=== PATIENT | female | born 1990 | race African-American/Black ===

== ENCOUNTER 2019-01-07 12:29 | Inpatient (IN) ==
[2019-01-07 13:19] LABS: Basophils # (auto) 0.04 K/uL (0-0.2); Basophils % (auto) 0.5 %; Eosinophils # (auto) 0.02 K/uL (0-0.5); Eosinophils % (auto) 0.2 %; Hematocrit (blood only) 38.9 % (37-47); Hemoglobin 13.5 g/dL (12.0-16.0); Immature Granulocytes # (auto) 0.02 K/uL (0.00-0.02); Immature Granulocytes % (auto) 0.2 %; Lymphocytes # (auto) 1.08 K/uL (1.2-3.4); Lymphocytes % (auto) 13.2 %; Mean Corpuscular Hgb Conc 34.7 g/dL (32-36); Mean Corpuscular Volume 84.7 fL (80-100); Monocytes # (auto) 0.47 K/uL (0.11-0.59); Monocytes % (auto) 5.8 %; Neutrophils # (auto) 6.53 K/uL (1.4-6.5); Neutrophils % (auto) 80.1 %; Platelet Count 329 K/uL (130-400); RDW Coefficient of Variation 12.4 % (11.5-14.5); RDW Standard Deviation 38.1 fL (36.4-46.3); Red Blood Count 4.59 M/uL (4.2-5.4); White Blood Count 8.16 K/uL (4.8-10.8)
[2019-01-07 13:20] LABS: Appearance Urine Clear (Clear); Bilirubin Urine Negative (Negative); Blood Urine Negative (Negative); Color Urine Yellow; Glucose Urine UA Negative (Negative); Ketones Urine Trace (Negative); Leukocyte Esterase Urine Negative (Negative); Nitrite Urine Negative (Negative); Protein Urine Negative (Negative); Specific Gravity Urine 1.022 (1.000-1.030); Urobilinogen Urine Negative (Negative); pH Urine 6.5 (4.5-7.5)
[2019-01-07 13:32] LABS: Albumin Level 3.9 gm/dl (3.4-5.0); BUN Creatinine Ratio 13.7 (10-20); Calcium 8.8 mg/dl (8.5-10.1); Est GFR (African American) 85.3; Est GFR (Non-African American) 73.6; Potassium 3.5 mmol/L (3.5-5.1)
[2019-01-07 13:35] LABS: Acetaminophen < 2 ug/ml (10-30); Salicylate < 1.7 mg/dl (2.8-20)
[2019-01-07 13:43] LABS: Albumin Globulin Ratio 1.3 (0.9-2); Bilirubin,Total 0.5 mg/dl (0.2-1); Globulin 3.1 gm/dl (2.5-4.0)
[2019-01-07 14:04] LABS: Pregnancy Test, Serum Negative (Negative)
[2019-01-07 14:10] LABS: Amphetamines+Metham, Urine Neg (Neg); Barbiturates, Urine Neg (Neg); Benzodiazepine, Urine Neg (Neg); Cocaine, Urine Neg (Neg); MDMA (Ecstacy), Urine Pos (Neg); Methadone, Urine Neg (Neg); Opiate, Urine Neg (Neg); Phencyclidine, Urine Neg (Neg)
[2019-01-07] MEDS ORDERED: diazePAM 2 MG TABLET PO ONE (15:12)
--- NOTE | 2019-01-07 15:12 | Emergency Department Note ---
Entered by Tanvi Alcocer acting as a scribe for History of Present Illness General Chief complaint: Mental Health Evaluation Stated complaint: MENTAL HEALTH Time Seen by Provider: 01/07/19 13:27 History of Present Illness Provider complaint: suicidal ideation Onset (ago): week(s) 3 Severity: similar to prior episodes (10 years ago) Pain Consistency: + intermittent Quality: + other (suicial ideation) Associated symptoms: + denies other symptoms (having a plan, prior suicide attempts, cutting or burning herself, ) and + other (scratches on body from her own fingernails, anxiety, doing very well with her therapist, psychiatrist and medication changes) The patient is a 28 year old female who presents to the ED with intermittent suicidal ideation that started 3 weeks ago. The patient states that she has been doing very well with her therapist, psychiatrist and medication changes, but recent relationship problems has triggered her anxiety and suicidal thoughts. The patient notes that she scratches herself with her fingernails when she gets anxious, which she has been doing more of recently. The patient denies having a plan because "pain has always been a deterrent" for her. The patient notes that this episode is similar to prior episodes of suicidal ideation that occurred 10 years ago. The patient denies prior suicide attempts, cutting and burning herself. Of note, patient initially admitted to nursing staff on their initial evaluation that she attempted overdose on Tylenol and sleeping pills last week, and that this week she placed a plastic bag over her head with the hopes that she would pass out and suffocate. Home Medications Home Medications Medication Instructions Recorded Confirmed Type bupropion HCl 200 mg PO DAILY 01/06/19 01/07/19 History dextroamphetamine-amphetamine 15 mg PO DAILY 01/06/19 01/07/19 History lorazepam [Ativan] 1 mg PO DAILY PRN 01/06/19 01/07/19 History Allergies Allergy/AdvReac Type Severity Reaction Status Date / Time sulfamethoxazole Allergy Intermediate Rash Verified 01/06/19 23:01 [From Bactrim] trimethoprim [From Bactrim] Allergy Intermediate Rash Verified 01/06/19 23:01 Past Med/Surg History Medical History Depression Suicidal ideations Anxiety Social History Preferred Language: Romanian Communication Ability: Effective Optical 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 and A total of 10 systems reviewed and were otherwise negative Physical Exam Vital Signs Vital Signs - 24 hr 01/07/19 12:33 01/07/19 15:16 Temperature 36.9 C Temperature Source Oral Sepsis Recent Fever Within 48 Hours No Sepsis New/Unexplained Change in Mental Status No Sepsis Action Taken by Nursing No Action Required Pulse Rate 102 H Pulse Rate [Finger] 83 Respiratory Rate 20 20 Blood Pressure 124/87 Blood Pressure [Left Arm] 122/56 L Blood Pressure Mean 99 Blood Pressure Mean [Left Arm] 78 Pulse Oximetry 96 98 Oxygen Delivery Method Room Air Room Air GENERAL: alert, well appearing, well nourished, no distress, non-toxic EYE EXAM: normal conjunctiva, PERRL and EOM's grossly intact OROPHARYNX: no exudate, no erythema, lips, buccal mucosa, and tongue normal and mucous membranes are moist NECK: supple, no nuchal rigidity, no adenopathy, non-tender LUNGS: Clear to auscultation. Normal chest wall mechanics, no w/r/r HEART: no murmurs, S1 normal and S2 normal ABDOMEN: abdomen soft, non-tender, normo-active bowel sounds, no masses, no rebound or guarding. BACK: Back is symmetrical on inspection and there is no deformity, no midline tenderness, no CVA tenderness. SKIN: no rashes and no bruising UPPER EXTREMITIES: upper extremities are grossly normal. FROM, nml pulses b/l. LOWER EXTREMITIES: No pitting edema. FROM, nml pulses b/l. NEURO EXAM: Normal sensorium, cranial nerves II-XII grossly intact, normal speech, no gross weakness of arms, no gross weakness of legs. PSYCH: Positive for SI. Admits to history of anxiety and depression. Slightly flat affect. Course 1421: Past medical records reviewed. The patient was evaluated in room A5. A complete history and physical exam was performed. 1500: Clarisa, psych adult protective caseworker, spoke with pt's psychiatrist who is in agreement with inpatient treatment at this time. 1630: I signed the 201. The patient will be transferred to [address] [place] [address]. Administered Medications Lorazepam (Ativan) 1 mg PO BID PRN PRN Reason: Anxiety/Insomnia Stop: 02/06/19 16:16 Last Admin: 01/07/19 17:44 Dose: 1 mg Documented by: [id number] Discontinued Medications Diazepam (Valium) 2 mg PO NOW ONE Stop: 01/07/19 15:13 Last Admin: 01/07/19 15:19 Dose: 2 mg Documented by: [id number] Medical Decision Making Differential Diagnosis Differential diagnosis: Etiologies such as psychiatric disorder, infection, hypoglycemia, electrolyte abnormalities, cardiac sources, intracerebral event, toxicological process, neurologic disorder, as well as others were entertained. Medical Records Attestation: I reviewed the patient's medical records. Home Medications Current Medication List: was personally reviewed by me Laboratory Data Attestation: I reviewed the patient's lab results. Result diagrams: 01/07/19 12:54 01/07/19 12:54 Lab Results 01/07/19 01/07/19 01/07/19 Range/Units 12:48 12:48 12:54 WBC 8.16 (4.8-10.8) K/uL RBC 4.59 (4.2-5.4) M/uL Hgb 13.5 (12.0-16.0) g/dL Hct 38.9 (37-47) % MCV 84.7 (80-100) fL MCH 29.4 (25-34) pg MCHC 34.7 (32-36) g/dL RDW Std Deviation 38.1 (36.4-46.3) fL RDW Coeff of Bello 12.4 (11.5-14.5) % Plt Count 329 (130-400) K/uL MPV 10.0 (7.4-10.4) fL Immature Gran % (Auto) 0.2 % Neut % (Auto) 80.1 % Lymph % (Auto) 13.2 % M[place] % (Auto) 5.8 % Eos % (Auto) 0.2 % Baso % (Auto) 0.5 % Immature Gran # (Auto) 0.02 (0.00-0.02) K/uL Neut # (Auto) 6.53 H (1.4-6.5) K/uL Lymph # (Auto) 1.08 L (1.2-3.4) K/uL Mingo # (Auto) 0.47 (0.11-0.59) K/uL Eos # (Auto) 0.02 (0-0.5) K/uL Baso # (Auto) 0.04 (0-0.2) K/uL Sodium (136-145) mmol/L Potassium (3.5-5.1) mmol/L Chloride (98-107) mmol/L Carbon Dioxide (21-32) mmol/L Anion Gap (3-11) BUN (7-18) mg/dl Creatinine (0.6-1.2) mg/dl Est Cr Clr Drug Dosing ml/min Est GFR ( Amer) Est GFR (Non-Af Amer) BUN/Creatinine Ratio (10-20) Glucose (70-99) mg/dl Calcium (8.5-10.1) mg/dl Total Bilirubin (0.2-1) mg/dl AST (15-37) U/L ALT (12-78) U/L Alkaline Phosphatase (45-117) U/L Total Protein (6.4-8.2) gm/dl Albumin (3.4-5.0) gm/dl Globulin (2.5-4.0) gm/dl Albumin/Globulin Ratio (0.9-2) TSH (0.300-4.500) uIu/ml HCG, Qual (Negative) Urine Color Yellow Urine Appearance Clear (Clear) Urine pH 6.5 (4.5-7.5) Ur Specific [place] 1.022 (1.000-1.030) Urine Protein Negative (Negative) Urine Glucose (UA) Negative (Negative) Urine Ketones Trace H (Negative) Urine Blood Negative (Negative) Urine Nitrite Negative (Negative) Urine Bilirubin Negative (Negative) Urine Urobilinogen Negative (Negative) Ur Leukocyte Esterase Negative (Negative) Salicylates (2.8-20) mg/dl Urine Opiates Screen Neg (Neg) Ur Methadone, Qual Neg (Neg) Acetaminophen (10-30) ug/ml Urine Barbiturates Neg (Neg) Ur Phencyclidine (PCP) Neg (Neg) U Amphetamin/Meth Scrn Neg (Neg) MDMA (Ecstasy) Screen Pos H (Neg) U Benzodiazepines Scrn Neg (Neg) Ur Cocaine Metabolite Neg (Neg) U Marijuana (THC) Screen Pos H (Neg) Ethyl Alcohol mg/dL (0-3) mg/dl 01/07/19 01/07/19 01/07/19 Range/Units 12:54 12:54 12:54 WBC (4.8-10.8) K/uL RBC (4.2-5.4) M/uL Hgb (12.0-16.0) g/dL Hct (37-47) % MCV (80-100) fL MCH (25-34) pg MCHC (32-36) g/dL RDW Std Deviation (36.4-46.3) fL RDW Coeff of Bello (11.5-14.5) % Plt Count (130-400) K/uL MPV (7.4-10.4) fL Immature Gran % (Auto) % Neut % (Auto) % Lymph % (Auto) % M[place] % (Auto) % Eos % (Auto) % Baso % (Auto) % Immature Gran # (Auto) (0.00-0.02) K/uL Neut # (Auto) (1.4-6.5) K/uL Lymph # (Auto) (1.2-3.4) K/uL Mingo # (Auto) (0.11-0.59) K/uL Eos # (Auto) (0-0.5) K/uL Baso # (Auto) (0-0.2) K/uL Sodium 140 (136-145) mmol/L Potassium 3.5 (3.5-5.1) mmol/L Chloride 108 H (98-107) mmol/L Carbon Dioxide 24 (21-32) mmol/L Anion Gap 8.0 (3-11) BUN 14 (7-18) mg/dl Creatinine 1.04 (0.6-1.2) mg/dl Est Cr Clr Drug Dosing 79.0 ml/min Est GFR ( Amer) 85.3 Est GFR (Non-Af Amer) 73.6 BUN/Creatinine Ratio 13.7 (10-20) Glucose 81 (70-99) mg/dl Calcium 8.8 (8.5-10.1) mg/dl Total Bilirubin 0.5 (0.2-1) mg/dl AST 11 L (15-37) U/L ALT 16 (12-78) U/L Alkaline Phosphatase 41 L (45-117) U/L Total Protein 7.0 (6.4-8.2) gm/dl Albumin 3.9 (3.4-5.0) gm/dl Globulin 3.1 (2.5-4.0) gm/dl Albumin/Globulin Ratio 1.3 (0.9-2) TSH 0.720 (0.300-4.500) uIu/ml HCG, Qual (Negative) Urine Color Urine Appearance (Clear) Urine pH (4.5-7.5) Ur Specific [place] (1.000-1.030) Urine Protein (Negative) Urine Glucose (UA) (Negative) Urine Ketones (Negative) Urine Blood (Negative) Urine Nitrite (Negative) Urine Bilirubin (Negative) Urine Urobilinogen (Negative) Ur Leukocyte Esterase (Negative) Salicylates < 1.7 L (2.8-20) mg/dl Urine Opiates Screen (Neg) Ur Methadone, Qual (Neg) Acetaminophen < 2 L (10-30) ug/ml Urine Barbiturates (Neg) Ur Phencyclidine (PCP) (Neg) U Amphetamin/Meth Scrn (Neg) MDMA (Ecstasy) Screen (Neg) U Benzodiazepines Scrn (Neg) Ur Cocaine Metabolite (Neg) U Marijuana (THC) Screen (Neg) Ethyl Alcohol mg/dL < 3.0 (0-3) mg/dl 01/07/19 Range/Units 13:00 WBC (4.8-10.8) K/uL RBC (4.2-5.4) M/uL Hgb (12.0-16.0) g/dL Hct (37-47) % MCV (80-100) fL MCH (25-34) pg MCHC (32-36) g/dL RDW Std Deviation (36.4-46.3) fL RDW Coeff of Bello (11.5-14.5) % Plt Count (130-400) K/uL MPV (7.4-10.4) fL Immature Gran % (Auto) % Neut % (Auto) % Lymph % (Auto) % [place] % (Auto) % Eos % (Auto) % Baso % (Auto) % Immature Gran # (Auto) (0.00-0.02) K/uL Neut # (Auto) (1.4-6.5) K/uL Lymph # (Auto) (1.2-3.4) K/uL M[place] # (Auto) (0.11-0.59) K/uL Eos # (Auto) (0-0.5) K/uL Baso # (Auto) (0-0.2) K/uL Sodium (136-145) mmol/L Potassium (3.5-5.1) mmol/L Chloride (98-107) mmol/L Carbon Dioxide (21-32) mmol/L Anion Gap (3-11) BUN (7-18) mg/dl Creatinine (0.6-1.2) mg/dl Est Cr Clr Drug Dosing ml/min Est GFR ( Amer) Est GFR (Non-Af Amer) BUN/Creatinine Ratio (10-20) Glucose (70-99) mg/dl Calcium (8.5-10.1) mg/dl Total Bilirubin (0.2-1) mg/dl AST (15-37) U/L ALT (12-78) U/L Alkaline Phosphatase (45-117) U/L Total Protein (6.4-8.2) gm/dl Albumin (3.4-5.0) gm/dl Globulin (2.5-4.0) gm/dl Albumin/Globulin Ratio (0.9-2) TSH (0.300-4.500) uIu/ml HCG, Qual Negative (Negative) Urine Color Urine Appearance (Clear) Urine pH (4.5-7.5) Ur Specific [place] (1.000-1.030) Urine Protein (Negative) Urine Glucose (UA) (Negative) Urine Ketones (Negative) Urine Blood (Negative) Urine Nitrite (Negative) Urine Bilirubin (Negative) Urine Urobilinogen (Negative) Ur Leukocyte Esterase (Negative) Salicylates (2.8-20) mg/dl Urine Opiates Screen (Neg) Ur Methadone, Qual (Neg) Acetaminophen (10-30) ug/ml Urine Barbiturates (Neg) Ur Phencyclidine (PCP) (Neg) U Amphetamin/Meth Scrn (Neg) MDMA (Ecstasy) Screen (Neg) U Benzodiazepines Scrn (Neg) Ur Cocaine Metabolite (Neg) U Marijuana (THC) Screen (Neg) Ethyl Alcohol mg/dL (0-3) mg/dl Blood Pressure Blood Pressure Findings: Elevated blood pressure Blood Pressure Disposition: further management by hospitalist [facility] Narrative Concern for deterioration of patient's symptoms despite ongoing treatment by her therapist, psychiatrist, and medical treatment. Patient admitted to nursing staff although denied to myself recent suicide attempt. Patient does admit to worsening depression, anxiety, and suicidal ideation she feels as a result of a break-up with her significant other. Do feel patient would benefit from inp atient treatment at this time. Patient was willing to sign a 201. Impression & Plan Depression, Anxiety, Suicidal ideation Discharge Plan Visit Data *Final* Discharge Date/Time: 01/07/19 16:30 Chief Complaint: Mental Health Evaluation Stated Complaint: MENTAL HEALTH ED Provider: Annamarie Dior Discharge Problem: Depression, Anxiety, Suicidal ideation Patient Disposition: Admitted As Inpatient Discharge Instructions Interventions: ED Discharge Assessment Last Done: 01/07/19 16:30 Discharge Problem: Depression Qualifiers: Depression Type: major depressive disorder Major depression recurrence: recurrent Active/Remission status: currently active Major depression episode severity: moderate Qualified Code(s): F33.1 - Major depressive disorder, recurrent, moderate The scribe's documentation has been prepared under my direction and personally reviewed by me in its entirety. I confirm that the note above accurately reflects all work, treatment, procedures, and medical decision making performed by me.
[2019-01-07] MEDS ORDERED: MAGNESIUM HYDROXIDE SUSP 30 ML UDC PO PRN (16:08)
[2019-01-07] MEDS ORDERED: BISMUTH SUBSALICYLATE PER ML OMNICELL CHARGE PO PRN (16:08)
[2019-01-07] MEDS ORDERED: SODIUM CHLORIDE 0.65% NA SOLN 45 ML (OCEAN) PRN (16:08)
[2019-01-07] MEDS ORDERED: ALUMINUM/MAGNESIUM SUSP 30 ML UDC PO PRN (16:08)
[2019-01-07] MEDS ORDERED: ACETAMINOPHEN 325 MG TAB PO PRN (16:08)
[2019-01-07] MEDS: LORazepam 1 MG TAB PO PRN (17:44)
[2019-01-07] MEDS: buPROPion HCl 100 MG TABLET PO SCH (21:22)
[2019-01-08] MEDS: buPROPion HCl 100 MG TABLET PO SCH ×2 (08:48→21:34)
[2019-01-08] MEDS ORDERED: AMPHETAMINE ASP/SULF/DEXTRAMPH 5 MG TAB PO SCH (09:00)
[2019-01-08] MEDS ORDERED: ADDERALL PO SCH (09:00)
[2019-01-08] MEDS ORDERED: PATIENT'S OWN CONTROLLED MED PO SCH (09:00)
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
[2019-01-08] MEDS ORDERED: lamoTRIgine 25 MG TAB PO STA (14:43)
[2019-01-08] MEDS ORDERED: DESTROY THIS MEDICATION ONE (15:28)
[2019-01-09] MEDS: AMPHETAMINE ASP/SULF/DEXTRAMPH 5 MG TAB PO SCH ×3 (06:12→14:09)
[2019-01-09] MEDS: lamoTRIgine 25 MG TAB PO SCH (08:29)
[2019-01-09] MEDS: buPROPion HCl 100 MG TABLET PO SCH (08:29)
--- NOTE | 2019-01-09 10:06 | Psychiatric Progress Note ---
Date of Service January 09, 2019 Impression / Recommendations Impression Patient admitted with a series of suicide gestures in the context of relationship discord. She initially minimized her behavior and requested immediate discharge, but after a meeting with a friend and her boyfriend says she is better understanding why other people were still concerned about her, given her erratic and dangerous behavior. On admission she was started on lamotrigine due to difficulty regulating her mood within the context of stressors. As her meeting yesterday went poorly, she is scheduled the second meeting today with 3 friends and her boyfriend. Outpatient clinicians were contacted and care coordinated, and they were in support of ongoing inpatient treatment given the safety concerns and multiple episodes of self injury/suicide attempt/gesture in the past couple of weeks. (1) Depression: 01/08 -The patient clearly has difficulty regulating her mood. She also reports a history of recurrent depressive episodes. However, it appears that currently the issue is primarily related to difficulty adjusting to the stress of a romantic breakup, combined with a long-standing history of difficulty regulating her mood when stressed, disappointed, or experiencing feelings of abandonment. -The plan is to continue her antidepressant medication, namely bupropion SR 200 mg twice a day. -The patient's outpatient psychiatrist has indicated that she is wondering if the patient might actually have an undiagnosed bipolar disorder. My impression is that she does not have bipolar disorder and that her mood alterations, while fairly prominent, seem to be reactive in nature. -I have spoken with the patient about the addition of lamotrigine as a mood stabilizer, but explained that I do not foresee anything other than a brief stay in the hospital, and my suggestion would be to her psychiatrist in the community as a possible intervention in the future. -The patient is working closely with her outpatient therapist around various issues, including low self-esteem and negative self talk. 01/09 -Cluster B traits evident, including sensitivity to interpersonal rejection, alternating between extremes of idealization and devaluation, impulsivity, recurrent suicidal gestures, and affective instability. This was discussed in her family meeting. -Care coordinated with her outpatient therapist and psychiatrist. (2) Anxiety: 01/08/19 -She uses lorazepam as needed basis for severe anxiety, but uses this medication sparingly, according to the patient. -Which she refers to anxiety may be better explained as a difficulty regulating mood in the face of stressors, and, again, I would suggest the addition of a mood stabilizer such as lamotrigine -The patient indicates that she has had difficulty tolerating selective serotonin reuptake inhibitors. Low-dose quetiapine may be effective both his mood stabilizer and for anxiety, following consideration of risks and benefits. 01/09 - Per reports patient overdosed on lorazepam, taking up to 7mg, before placing a plastic bag over her head in a suicide attempt/gesture, which she says she does not remember. Caution with ongoing benzodiazepine use would be indicated given risk of disinhibition. (3) Suicidal ideation: 01/08/19 -The patient reports that she is not currently having suicidal ideation and asserts that she never had any actual suicidal intent. She acknowledges that she had several "estures" earlier in the week within the context of overwhelming distress regarding her breakup with her boyfriend, and she also acknowledges that she has had fleeting, but nonspecific, thoughts of suicide subsequent to that. However, she describes the gestures as being "symbolic" as a way of managing her distress, similar to superficially scratching herself. She notes that she had no real intent of causing serious physical harm to self. -The patient was educated regarding suicide gestures and it was explained that such gestures can sometimes lead to unexpected and strongly undesired complications. The patient indicated understanding. -Currently, the patient is future oriented. 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 (4) ADHD: 01/08/19 -The patient tells me that she feels that her ADHD symptoms have been under reasonable control. The patient does demonstrate circumferential thinking and tends to be overinclusive. However, she tells me that her 80s H the symptoms are more related to difficulty staying on task, being very easily distracted by external stimuli, and having her mind wander while being directly addressed by others.. -The patient clarified that her dose of Adderall is Adderall 15 mg 3 times a day rather than Adderall extended release 15 mg once a day. Adderall 15 mg extended release will be discontinued, the second dose today is to be admitted, and a dose of Adderall immediate release 15 mg will be given in the late afternoon. Inventory Assets Strengths: Intelligent. Supportive friendships. Future oriented. Positive relationship with treatment providers. Actively engaged in treatment. Needs: Mood stabilization. Avoidance of suicide gestures and self-injurious behaviors. Risk Factors Assessment Male: No : No Do You Have Access To A Gun?: No Health Problems: No Mental Health Diagnoses: Yes Substance Use Disorders: No Previous Attempt: Yes Previous Attempt; Highly Lethal: No Previous Attempt; Planned: No Previous Attempt; Didn't Tell Anyone: No Family History of Suicide: No Previous Psychiatric Hospitalization: No Hopelessness: No Smoker: No Protective Factors Assessment Amish Beliefs: No : No Responsible for Young Children: No Employed: Yes ([employer]) Stable Relationships: Yes Supportive Family: No Good Rapport with Provider: Yes Absence of Any Risk Factors Above: No Interval History Identifying Information NYASIA BAUTISTA is a 28-year-old F who currently lives with a female friend in the [place] area. She has a known history of depression, anxiety, binge eating disorder, panic disorder and ADHD. She was admitted on 01/07/19 16:08 on a 201 voluntary agreement because of suicidal ideation following a romantic di sappointment. Chief Complaint "For a day in this unit, okay I guess". Review of Systems Sleep Information Total Hours of Sleep: 5.5 Sleep Comments: pt on q-15 minute checks Meal Information Percent Meal Consumed - Breakfast: 75 Percent Meal Consumed - Lunch: 75 Percent Meal Consumed - Dinner: 80 Subjective Subjective leading up to admission.Patient was seen & assessed and interval progress reviewed with treatment team. Staff report she had a family meeting with her boyfriend and a friend yesterday, during which she minimized her suicidal gestures and attempts, and her goal was to be discharged immediately. Her friend and boyfriend expressed worry and concern about her safety and the possibility that she would try to hurt herself again. She gave conflicting reports, for example had previously reported taking 7 mg of lorazepam prior to putting a bag over her head, but in the meeting said she did not even remember putting a bag over her head and was not sure how much lorazepam she took. When her boyfriend contradicted some of her reports, she said that he was not supporting her and that she was done with the relationship and wanted no contact moving forward. She then blamed her behaviors on her boyfriend, stating that he had been dishonest with her. Her boyfriend appeared very upset throughout the meeting, expressed how frightened he was that she was going to end her life. She went back and forth between telling him she wanted no further contact and telling him that she loved him. She initially said that she had not appreciated the seriousness of her actions and how worried her friends were about her, but later said she viewed them as keeping her in the hospital "forever." The patient's mood was very labile during the meeting, shifting rapidly from calm to dramatic crying. She was encouraged to work on her coping and safety plan, and stated that her boyfriend would not be part of it. She then scheduled another family meeting for today with multiple friends and her boyfriend. Today she was seen with Nathalie Dupree and FARSHAD Wright. She reports treatment has been helpful to "give me a pause, I didn't realize the severity of the consequences of my actions...I thought I could just push through all the work I had to do, and the relationship stuff." She says it "just dawned on my that not taking care of myself has real consequences, I hadn't exercised for weeks or eaten well for months." She says the meeting with her friend and boyfriend "didn't go super well, I'm hoping to have a better meeting today. I was just very upset that I was here, and very scared at the fabrice of being here forever, everything was very confusing, I became very defensive." She says it's "obvious" why she wants to leave, as she wants to be "be in my own environment." She notes she was "a little too defensive, didn't deal very well with their frustration, anger and emotions." She has thought about it and now has a better appreciation for their fear. She also reports she doesn't recall some of the events her friends relayed (putting the plastic bag over her head and tightening it, which occurred after taking a large dose of Ativan, possibly 7mg). She says that when she is "lucid" she is not suicidal, but the "combination of sleep deprivation, the grief, ruminating about the affair was so overwhelming." Feels she needs to work on "living with uncertainty" with respect to her boyfriend's infidelity. Physical Exam Psychiatric Orientation: alert, oriented x 3 and cooperative Apperance: appropriately dressed, appropriately groomed and appeared stated age Eye Contact: good eye contact Motor Behavior: steady gait and station and no abnormal motor movements Speech: normal rate/rhythm/volume of speech Affect: + depressed affect but reactive and appropriate "For a day in this unit, okay I guess". Thought Process: goal directed thought process Thought Content: reality based without delusions Suicidal Thoughts: denies suicidal thoughts Homicidal Thoughts: denies homicidal thoughts Hallucinations: no auditory hallucinations Cognition: recent memory grossly intact (with the exception of events prior to admission (suicide attempts/gestures)), attention grossly intact and language grossly intact Estimated Intelligence: consistent with education level Insight: + impaired insight Judgement: + impaired judgement Vital Signs (Past 24 Hours) Last Vital Signs Temp 36.7 C 01/09/19 06:43 Pulse 88 01/09/19 06:43 Resp 18 01/09/19 06:43 BP 113/82 01/09/19 06:43 Pulse Ox 98 01/07/19 17:18 Results & Data Current Inpatient Medications Current Inpatient Medications: Current Inpatient Medications Acetaminophen (Tylenol) 650 mg PO Q4H PRN PRN Reason: Headache or Minor Fever Stop: 02/06/19 16:07 Al Hydrox/Mg Hydrox/Simethicone (Maalox) 30 ml PO Q4H PRN PRN Reason: GI Upset Stop: 02/06/19 16:07 Amphetamine/Dextroamphetamine (Adderall) 15 mg PO 0600,1000,1400 EMMY Stop: 01/23/19 05:59 Last Admin: 01/09/19 09:56 Dose: 15 mg Documented by: Bismuth Subsalicylate (Kaopectate) 15 ml PO PRN PRN PRN Reason: Loose Stool Stop: 02/06/19 16:07 Bupropion HCl (Wellbutrin) 200 mg PO BID EMMY Stop: 02/06/19 20:59 Last Admin: 01/09/19 08:29 Dose: 200 mg Documented by: Hydroxyzine HCl (Vistaril) 25 mg PO Q4H PRN PRN Reason: Anxiety Stop: 02/06/19 16:07 Hydroxyzine HCl (Vistaril) 50 mg PO HSZ PRN PRN Reason: Insomnia Stop: 02/06/19 16:07 Last Admin: 01/08/19 21:36 Dose: 50 mg Documented by: Lamotrigine (Lamictal) 25 mg PO QAM EMMY Stop: 02/08/19 08:59 Last Admin: 01/09/19 08:29 Dose: 25 mg Documented by: Lorazepam (Ativan) 1 mg PO BID PRN PRN Reason: Anxiety/Insomnia Stop: 02/06/19 16:16 Last Admin: 01/07/19 17:44 Dose: 1 mg Documented by: Magnesium Hydroxide (Milk Of Magnesia) 30 ml PO DAILY PRN PRN Reason: Constipation Stop: 02/06/19 16:07 Sodium Chloride (Baldwin Nasal) 1 - 2 sprays NA PRN PRN PRN Reason: Nasal Dryness/Congestion Stop: 02/06/19 16:07 Mental Health & Subst Abuse Tx Psychiatrist Name of Psychiatrist: Dr. Addison Psychiatrist's Date of Appointment with Psychiatrist: 01/10/19 Time of Appointment with Psychiatrist: 2:30pm Therapist Name of Therapist: Vinita dhillon [facility] Therapist's Date of Therapist Appointment: 01/09/19 Time of Therapist Appointment: 4pm Post Discharge Appointments Primary Care Physician Name Of Family Doctor: [place] CPT Code CPT Code 87161 (1) Depression Active/Remission status: currently active Depression Type: major depressive disorder Major depression episode severity: moderate Major depression recurrence: recurrent Qualified Code(s): F33.1 - Major depressive disorder, recurrent, moderate
[2019-01-10] MEDS: LORazepam 1 MG TAB PO PRN (02:41)
[2019-01-10] MEDS ORDERED: BuPROPion SR 150 MG TABCR PO SCH (09:00)
[2019-01-10] MEDS: lamoTRIgine 25 MG TAB PO SCH (09:11)
[2019-01-10] MEDS: AMPHETAMINE ASP/SULF/DEXTRAMPH 5 MG TAB PO SCH ×2 (09:11→11:31)
--- NOTE | 2019-01-10 09:37 | Discharge Summary ---
Date of Service January 10, 2019 History of Present Illness The patient is a 28-year-old woman with known diagnoses of major depressive disorder, recurrent; generalized anxiety disorder; binge eating disorder; and attention deficit hyperactivity disorder. The patient also endorses a history of panic episodes. She is currently in treatment with both a therapist and a psychiatrist at [facility] in [place] where she is being treated with Adderall immediate release 15 mg 3 times a day and bupropion SR 200 mg twice a day. (She reports that she has not been able to tolerate selective serotonin reuptake inhibitors.) The patient says that she feels that she was doing quite well and had been psychiatrically stable until recently learning that her boyfriend and domestic partner had continued to exchange frequent and, sometimes, romantic emails with his former girlfrienddespite the fact that the boyfriend had evidently originally claimed to have ended his relationship with his other woman 5 years ago, and then, more recently, had asserted that the relationship had ended approximately 2 years ago. The patient was understandably distressed because she felt that she could no longer trust the boyfriend, particularly because of that happened twice that he had misrepresented the truth about his ongoing relationship with the other woman. She was also hurt because she and her boyfriend had been discussing marriage and, in fact, he had been looking for a ring and had told her that he was getting ready to propose. Within this context, the patient broke up with her boyfriend, moved in with a female friend, and was in the process of removing her belongings from the apartment that she had been sharing with her boyfriend. The patient became progressively more distressed, was having frequent crying spells, and noted difficulty sleeping. The patient also reportedly began to have th oughts of suicide. The patient acknowledges that shortly after the breakup she took an overdose of Tylenol and "sleeping pills," but did not experience any sequela and did not come to medical attention. She also reports that she put a plastic bag over her head with a thought that she might lose consciousness and of suffocation, but did not tie the bag tightly and simply remove the bag without negative consequence.. There was a remote history of intentional self- injurious behaviors such as superficially scratching or cutting herself as an adolescent, but she had not engaged in that behavior for approximately 10 years until this week when she on several occasion scratched her chest and arms with her fingernails as a way of relieving tension and distress. This makes the second time that the patient has ended the relationship with her boyfriend and she acknowledges that she really does not want the relationship to end. She has that she is in love with the boyfriend, but very disappointed by his behavior, his immaturity and his apparent dishonesty. The patient endorses difficulty regulating her mood, but attributes this to "[her] culture." Specifically, her mother is Armenian, her father is Afghan, and she was raised in a number of different countries. 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. Today, the patient denies that she ever had any actual suicidal intent in association with the suicide gestures that occurred shortly after breaking up with her boyfriend, and notes that she always recognize that these ask for more "symbolic" as a way of managing tension and stress, similar to her history of self cutting. Physical Exam Psychiatric Orientation: alert and cooperative Apperance: appropriately dressed, appropriately groomed and appeared stated age Eye Contact: good eye contact Motor Behavior: steady gait and station and no abnormal motor movements Speech: normal rate/rhythm/volume of speech Affect: euthymic affect and mood congruent with affect "Good." Thought Process: goal directed thought process and linear/logical thought process Thought Content: reality based without delusions Suicidal Thoughts: denies suicidal thoughts Homicidal Thoughts: denies homicidal thoughts Hallucinations: no auditory hallucinations Cognition: recent memory grossly intact, attention grossly intact and language grossly intact Estimated Intelligence: consistent with education level Insight: + fair insight Judgement: + fair judgement Vital Signs (Past 24 Hours) Last Vital Signs Temp 36.5 C 01/10/19 06:39 Pulse 94 H 01/10/19 06:41 Resp 16 01/10/19 06:39 BP 105/76 01/10/19 06:41 Pulse Ox 98 01/07/19 17:18 Principal Diagnosis Depression Psychiatric Data The patient was hospitalized on our unit for 3 days. She reported mood dysregulation in the context of relationship discord, which resulted in several episodes of self injury/suicidal behavior. She initially minimized these acts, but on further discussion admitted to taking an overdose of Tylenol and sleeping medication, putting a plastic bag over her head with a thought that she might lose consciousness and of suffocation, and punching out the screen of a window. Her boyfriend reported that she had run at the window as if to jump out, but she denied doing that. She denied suicidal thoughts or intent while in the hospital, and reported that she had been psychiatrically stable until the recent breakup with her boyfriend. She reported chronic difficulty sleeping, but denied symptoms consistent with camilla or hypomania. Cluster B traits were noted, with sensitivity to interpersonal rejection, alternating between extremes of idealization and devaluation, impulsive behavior, and affective instability. This was discussed during her family meeting with her friend and boyfriend. She had 2 separate family meeting; the first, on 01/08/2019, was difficult, she minimized her suicidal gestures and attempts, and her goal was to be discharged immediately. Her friend and boyfriend expressed worry and concern about her safety and the possibility that she would try to hurt herself again. She gave conflicting reports, for example had previously reported taking 7 mg of lorazepam prior to putting a bag over her head, but in the meeting said she did not even remember putting a bag over her head and was not sure how much lorazepam she took. When her boyfriend contradicted some of her reports, she said that he was not supporting her and that she was done with the relationship and wanted no contact moving forward. She then blamed her behaviors on her boyfriend, stating that he had been dishonest with her. Her boyfriend appeared very upset throughout the meeting, expressed how frightened he was that she was going to end her life. She went back and forth between telling him she wanted no further contact and telling him that she loved him. She initially said that she had not appreciated the seriousness of her actions and how worried her friends were about her, but later said she viewed them as keeping her in the hospital "forever." The patient's mood was very labile during the meeting, shifting rapidly from calm to dramatic crying. She was encouraged to work on her coping and safety plan, and stated that her boyfriend would not be part of it. She then scheduled another family meeting for the following day with 3 friends, including her new housemate, and her (ex)boyfriend. She apologized to them for her behaviors the day prior, but then rationalized her responses, indicating that she felt powerless and trapped by being in the hospital. Her ex-boyfriend indicated that he cares about her but does not think he should be part of her safety plan, which she agreed with, and he then left the meeting. She reviewed her safety plan with her friends, who are supportive. Day of Discharge Assessment Staff report she is attending groups, making future oriented plans, and spends her free time socializing with her peers. She had multiple visitors, and talked about being estranged from her family of origin. She reported difficulty falling asleep, and received Lorazepam and hydroxyzine. This morning, she continues to deny suicidal thoughts, has a bright affect, and is requesting discharge. On my assessment the patient reports she had a "tough but good" meeting with her "chosen family" yesterday, and feels supported by them. She admits she still doesn't understand how scared her friends were for her safety, and "I need to continue to work on that." She wants to work on dealing with uncertainty, noting that is a challenge for her. She has been talking about her long standing thought pattern of suicide as a solution if things don't go the way she wants them to, and realizing that is not healthy. She reports it's been helpful to process with thoughts, and does not think she would ever try to hurt herself as she has a lot to live for, and doesn't want to hurt the people that care about her. She has started journalling which has been helpful, and is looking forward to continue working on things in therapy. She says treatment has been helpful and feels ready to move forward. Transition of Care Transition Of Care Record: was reviewed with the patient Advance Directives Advance Directives Information Provided: No Advance Directives: No Mental Health Advance Directive: No Advance Directives on File: No Living Will: No Power of Buckle Sewer: No Advance Directives Reason:: Declines as Mental Health Visit. Risk Factors Assessment Patient unit, use of medications to target mood and anxiety symptoms, coordination of care with her outpatient providers, involving her in groups and therapy, working on healthy coping skills and her discharge safety plan, multiple family meetings with her support network, and referring her for increased outpatient services (group therapy at [facility]). She has demonstrated improvement in mood, has been calm and behavioral control, without threats of self-harm, has not engaged in self-injurious behavior, is taking medications and tolerating them well, participating in treatment, and stating willingness to follow up as an outpatient. She is requesting discharge, and as she has no lo nger at acute risk of harm to herself, can be managed as an outpatient at this time. Male: No : No Do You Have Access To A Gun?: No Health Problems: No Mental Health Diagnoses: Yes Substance Use Disorders: No Previous Attempt: Yes Previous Attempt; Highly Lethal: No Previous Attempt; Planned: No Previous Attempt; Didn't Tell Anyone: No Family History of Suicide: No Previous Psychiatric Hospitalization: No Hopelessness: No Smoker: No Protective Factors Assessment Lutheran Beliefs: No : No Responsible for Young Children: No Employed: Yes ([employer]) Stable Relationships: Yes Supportive Family: No (But supportive network of friends locally.) Good Rapport with Provider: Yes Absence of Any Risk Factors Above: No Tobacco Cessation at Discharge Tobacco Cessation Medication Prescribed at Discharge: Not Applicable/Non-Smoker Total Time Total Time Spent: Greater Than 30 Minutes Total Time Includes: Examination of the patient, Discharge Planning and Medication Reconciliation Discharge Data Lab Results 01/07/19 01/07/19 01/07/19 12:48 12:48 12:54 WBC 8.16 RBC 4.59 Hgb 13.5 Hct 38.9 MCV 84.7 MCH 29.4 MCHC 34.7 RDW Std Deviation 38.1 RDW Coeff of Bello 12.4 Plt Count 329 MPV 10.0 Immature Gran % (Auto) 0.2 Neut % (Auto) 80.1 Lymph % (Auto) 13.2 Haralson % (Auto) 5.8 Eos % (Auto) 0.2 Baso % (Auto) 0.5 Immature Gran # (Auto) 0.02 Neut # (Auto) 6.53 H Lymph # (Auto) 1.08 L Haralson # (Auto) 0.47 Eos # (Auto) 0.02 Baso # (Auto) 0.04 Sodium Potassium Chloride Carbon Dioxide Anion Gap BUN Creatinine Est Cr Clr Drug Dosing Est GFR ( Amer) Est GFR (Non-Af Amer) BUN/Creatinine Ratio Glucose Calcium Total Bilirubin AST ALT Alkaline Phosphatase Total Protein Albumin Globulin Albumin/Globulin Ratio TSH HCG, Qual Urine Color Yellow Urine Appearance Clear Urine pH 6.5 Ur Specific Piedmont 1.022 Urine Protein Negative Urine Glucose (UA) Negative Urine Ketones Trace H Urine Blood Negative Urine Nitrite Negative Urine Bilirubin Negative Urine Urobilinogen Negative Ur Leukocyte Esterase Negative Salicylates Urine Opiates Screen Neg Ur Methadone, Qual Neg Acetaminophen Urine Barbiturates Neg Ur Phencyclidine (PCP) Neg U Amphetamin/Meth Scrn Neg MDMA (Ecstasy) Screen Pos H U Benzodiazepines Scrn Neg Ur Cocaine Metabolite Neg U Marijuana (THC) Screen Pos H Ethyl Alcohol mg/dL 01/07/19 01/07/19 01/07/19 12:54 12:54 12:54 WBC RBC Hgb Hct MCV MCH MCHC RDW Std Deviation RDW Coeff of Bello Plt Count MPV Immature Gran % (Auto) Neut % (Auto) Lymph % (Auto) Haralson % (Auto) Eos % (Auto) Baso % (Auto) Immature Gran # (Auto) Neut # (Auto) Lymph # (Auto) Haralson # (Auto) Eos # (Auto) Baso # (Auto) Sodium 140 Potassium 3.5 Chloride 108 H Carbon Dioxide 24 Anion Gap 8.0 BUN 14 Creatinine 1.04 Est Cr Clr Drug Dosing 79.0 Est GFR ( Amer) 85.3 Est GFR (Non-Af Amer) 73.6 BUN/Creatinine Ratio 13.7 Glucose 81 Calcium 8.8 Total Bilirubin 0.5 AST 11 L ALT 16 Alkaline Phosphatase 41 L Total Protein 7.0 Albumin 3.9 Globulin 3.1 Albumin/Globulin Ratio 1.3 TSH 0.720 HCG, Qual Urine Color Urine Appearance Urine pH Ur Specific Piedmont Urine Protein Urine Glucose (UA) Urine Ketones Urine Blood Urine Nitrite Urine Bilirubin Urine Urobilinogen Ur Leukocyte Esterase Salicylates < 1.7 L Urine Opiates Screen Ur Methadone, Qual Acetaminophen < 2 L Urine Barbiturates Ur Phencyclidine (PCP) U Amphetamin/Meth Scrn MDMA (Ecstasy) Screen U Benzodiazepines Scrn Ur Cocaine Metabolite U Marijuana (THC) Screen Ethyl Alcohol mg/dL < 3.0 01/07/19 13:00 WBC RBC Hgb Hct MCV MCH MCHC RDW Std Deviation RDW Coeff of Bello Plt Count MPV Immature Gran % (Auto) Neut % (Auto) Lymph % (Auto) Haralson % (Auto) Eos % (Auto) Baso % (Auto) Immature Gran # (Auto) Neut # (Auto) Lymph # (Auto) Haralson # (Auto) Eos # (Auto) Baso # (Auto) Sodium Potassium Chloride Carbon Dioxide Anion Gap BUN Creatinine Est Cr Clr Drug Dosing Est GFR ( Amer) Est GFR (Non-Af Amer) BUN/Creatinine Ratio Glucose Calcium Total Bilirubin AST ALT Alkaline Phosphatase Total Protein Albumin Globulin Albumin/Globulin Ratio TSH HCG, Qual Negative Urine Color Urine Appearance Urine pH Ur Specific Piedmont Urine Protein Urine Glucose (UA) Urine Ketones Urine Blood Urine Nitrite Urine Bilirubin Urine Urobilinogen Ur Leukocyte Esterase Salicylates Urine Opiates Screen Ur Methadone, Qual Acetaminophen Urine Barbiturates Ur Phencyclidine (PCP) U Amphetamin/Meth Scrn MDMA (Ecstasy) Screen U Benzodiazepines Scrn Ur Cocaine Metabolite U Marijuana (THC) Screen Ethyl Alcohol mg/dL Hospital Course (1) Depression: 01/08 -The patient clearly has difficulty regulating her mood. She also reports a history of recurrent depressive episodes. However, it appears that currently the issue is primarily related to difficulty adjusting to the stress of a romantic breakup, combined with a long-standing history of difficulty regulating her mood when stressed, disappointed, or experiencing feelings of abandonment. -The plan is to continue her antidepressant medication, namely bupropion SR 200 mg twice a day. -The patient's outpatient psychiatrist has indicated that she is wondering if the patient might actually have an undiagnosed bipolar disorder. My impression is that she does not have bipolar disorder and that her mood alterations, while fairly prominent, seem to be reactive in nature. -I have spoken with the patient about the addition of lamotrigine as a mood stabilizer, but explained that I do not foresee anything other than a brief stay in the hospital, and my suggestion would be to her psychiatrist in the community as a possible intervention in the future. -The patient is working closely with her outpatient therapist around various issues, including low self-esteem and negative self talk. 01/09 -Cluster B traits evident, including sensitivity to interpersonal rejection, alternating between extremes of idealization and devaluation, impulsivity, recurrent suicidal gestures, and affective instability. This was discussed in her family meeting. -Care coordinated with her outpatient therapist and psychiatrist. 01/10 -Patient was referred to [facility] for participation in group therapy, and has a phone assessment 01/14/2019. Care coordinated with her outpatient individual therapist and psychiatrist. (2) Anxiety: 01/08/19 -She uses lorazepam as needed basis for severe anxiety, but uses this medication sparingly, according to the patient. -Which she refers to anxiety may be better explained as a difficulty regulating mood in the face of stressors, and, again, I would suggest the addition of a mood stabilizer such as lamotrigine -The patient indicates that she has had difficulty tolerating selective serotonin reuptake inhibitors. Low-dose quetiapine may be effective both his mood stabilizer and for anxiety, following consideration of risks and benefits. 01/09 - Per reports patient overdosed on lorazepam, taking up to 7mg, before placing a plastic bag over her head in a suicide attempt/gesture, which she says she does not remember. Caution with ongoing benzodiazepine use would be indicated given risk of disinhibition. (3) Suicidal ideation: 01/08/19 -The patient reports that she is not currently having suicidal ideation and asserts that she never had any actual suicidal intent. She acknowledges that she had several "estures" earlier in the week within the context of overwhelming distress regarding her breakup with her boyfriend, and she also acknowledges that she has had fleeting, but nonspecific, thoughts of suicide subsequent to that. However, she describes the gestures as being "symbolic" as a way of catrachito ging her distress, similar to superficially scratching herself. She notes that she had no real intent of causing serious physical harm to self. -The patient was educated regarding suicide gestures and it was explained that such gestures can sometimes lead to unexpected and strongly undesired complications. The patient indicated understanding. -Currently, the patient is future oriented. 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 (4) ADHD: 01/08/19 -The patient tells me that she feels that her ADHD symptoms have been under reasonable control. The patient does demonstrate circumferential thinking and tends to be overinclusive. However, she tells me that her 80s H the symptoms are more related to difficulty staying on task, being very easily distracted by external stimuli, and having her mind wander while being directly addressed by others.. -The patient clarified that her dose of Adderall is Adderall 15 mg 3 times a day rather than Adderall extended release 15 mg once a day. Adderall 15 mg extended release will be discontinued, the second dose today is to be admitted, and a dose of Adderall immediate release 15 mg will be given in the late afternoon. Mental Health & Subst Abuse Tx Psychiatrist Name of Psychiatrist: Dr. Addison Psychiatrist's Date of Appointment with Psychiatrist: 01/10/19 Time of Appointment with Psychiatrist: 2:20 Therapist Name of Therapist: Vinita dhillon [facility] Therapist's Date of Therapist Appointment: 01/15/19 Time of Therapist Appointment: 5pm Post Discharge Appointments Primary Care Physician Name Of Family Doctor: [facility] Primary Care Provider Appointment Comment: As needed Smoking Cessation Counseling Tobacco Cessation Medication Prescribed at Discharge: Not Applicable/Non-Smoker Contact Information Discharge Phone Number: [phone] Discharge [address]: [address] [place] [address] Discharge Plan Discharge Items Patient Disposition: Home - Self-Care Reason For Visit: MDD Discharge Diagnosis: Depression Activity: Per Instructions section Non-emergency contact: Psychiatrist and Therapist Call non-emergency contact if: you have any medication questions and your symptoms worsen Follow-up/Referrals: [place] [Primary Care Provider] - Diet: Regular Addtl Attending Provider Instructions: SPECIAL CARE INSTRUCTIONS: 1. Follow through with your scheduled aftercare appointments. If unable to keep an appointment, please call to reschedule. 2. Take your medication only as prescribed. Medication should not be changed or stopped without the approval of your doctor. In the event of worsening symptoms or concerns about side effects, contact your doctor immediately. 3. Utilize new healthy coping skills, anger management skills, and stress management skills learned during your hospitalization. Journal feelings and process them with a support person. Identify stressors or situations that may result in relapse, deterioration or inappropriate behaviors and develop a plan to deal with those issues. 4. If your coping skills are ineffective and you are in crisis, contact your outpatient providers for direction. If unable to reach your providers, please call the CAN HELP LINE AT or go to the closest Emergency Room. 5. Avoid alcohol and un-prescribed drugs. 6. You have been provided with the Mental Health Advance Directives Pamphlet for your review. AFTERCARE APPOINTMENTS: * Please call your insurance company prior to your scheduled appointment to confirm your aftercare providers are covered. Take your insurance information to your appointments. WHO TO CALL AND WHEN: Medical Emergencies: For questions or emergencies related to your hospital stay, please contact the Inpatient Behavioral Health Unit at [phone]. A wrapper off is on-call 21/11 for the Behavioral Health Unit for emergencies At any time you feel your situation is an emergency, you may also call 911 immediately. Your Doctors Instructions noted above were prepared by provider Noemi Casillas MD. Pending Studies at Discharge: No Stand-Alone Forms: [facility] Medications and DC Order Prescriptions: New lamotrigine [Lamictal] 25 mg Tablet 25 mg PO QAM Qty: 30 RF: 0 Continued dextroamphetamine-amphetamine 15 mg tablet 15 mg PO DAILY RF: 0 bupropion HCl 200 mg tablet sustained-release 12 hr 200 mg PO DAILY RF: 0 Discontinued lorazepam [Ativan] 1 mg Tablet 1 mg PO DAILY PRN (Reason: Anxiety) RF: 0 Discharge Orders: Discharge Order (Routine); Ordered 01/10/19 Ordered By: Noemi Casillas Admission Data Admit Date/Time: 01/07/19 16:08 Attending Provider: Dustin Acosta Admit Provider: Dustin Acosta Primary Care Provider: [facility] Other Interventions: PSY Interdisciplinary Discharge Planning Last Done: 01/10/19 09:27
== END 2019-01-10 12:25 | disposition home or self-care (01) | DRG 885 ==
LOC: ED 12:29 → 3S 16:08